=== PATIENT | female | born 1990 | race Caucasian/White ===

== ENCOUNTER 2016-10-12 06:12 | Day surgery (SDC) | payer MEDICAID ==
[2016-10-11 11:59] LABS: BASOPHILS 0.2 % (0.0-2.0); EOSINOPHILS 0.8 % (0-7); HEMATOCRIT 36.5 % (36.0-48.0); HEMOGLOBIN 11.7 g/dL (12-16); IMMATURE GRANULOCYTES 0.3 % (0-5); LYMPHOCYTES 29.8 % (15-50); MCH 27.7 pg (26.0-34.0); MCHC 32.1 g/dL (31.0-37.0); MCV 86.5 fL (80.0-100.0); MEAN PLATELET VOLUME 8.9 fL (7.4-10.4); NEUTROPHILS 61.9 % (40-80); PLATELET COUNT 235 10x3/uL (130-400); RBC 4.22 10x6/uL (4.00-5.40); RDW 13.4 % (11.5-14.5); WBC 6.6 10x3/uL (4.8-10.8)
[~2016-10-12] VITALS: Ht 167.6 cm; Wt 53.5 kg
[~2016-10-12 06:12] MED LIST: MUCUS RELIEF
[2016-10-12 08:03] VITALS: BP 111/68; Ht 167.6 cm; Wt 53.5 kg
[2016-10-12] MEDS ORDERED: VALIUM5 MG PO (08:12)
[2016-10-12 08:14] LABS: HCG URINE NEGATIVE (NEGATIVE)
--- NOTE | 2016-10-12 08:40 | HP ---
PATIENT: SOPHIA NGUYEN MEDICAL RECORD: [id number] ACCOUNT: [id number] LOCATION:[facility] : 89 ADMISSION DATE: 10/12/16 HISTORY AND PHYSICAL EXAMINATION HISTORY OF PRESENT ILLNESS: This patient is a 26-year-old 3, para 3 white female with severe menorrhagia. She is status post tubal ligation. She desires endometrial ablation. DRUG ALLERGIES: MORPHINE AND ASPIRIN. CURRENT MEDICATIONS: Valium, tramadol, promethazine, and albuterol. PREVIOUS SURGERIES: Tubal ligation in 2014. Most recent Pap smear this year is normal. REVIEW OF SYSTEMS: No chest pain and no dyspnea. Positive for severe menorrhagia. FAMILY HISTORY: Noncontributory. SOCIAL HISTORY: Previously and currently . HABITS: Recently quit smoking. No ethanol use. PHYSICAL EXAMINATION: GENERAL: Well-developed and well-nourished female in no distress. VITAL SIGNS: Her weight is 118, her blood pressure 100/60. HEENT: Grossly unremarkable. LUNGS: Clear. HEART: Regular rate and rhythm. ABDOMINAL AND PELVIC: Current and will be repeated under anesthesia. EXTREMITIES: No cyanosis, clubbing or edema. NEUROLOGIC: Grossly intact. IMPRESSION: Severe menorrhagia, status post tubal ligation, desires endometrial ablation. After discussion of all options including oral contraceptives, Depo-Provera and hysterectomy. The risk of procedure were identified individually and discussed. TRANSINT:[id number] Voice Confirmation ID: [id number] DOCUMENT ID: [id number] KULWINDER SANCHEZ MD at 0840 CC: [id number] DICTATION DATE: 10/11/16 1239 HOG FEEDER: 10/11/[address] [facility] [address] [place] [address]
--- NOTE | 2016-10-12 10:42 | NUR ---
BURN 93 SECONDS
--- NOTE | 2016-10-12 11:04 | NUR ---
OPA IN AIRWAY ON ADMIT TO RR.
--- NOTE | 2016-10-12 11:10 | NUR ---
OPA REMOVED AT 1110.
--- NOTE | 2016-10-12 11:39 | NUR ---
1139 NO VAGINAL BLEEDING NOTED.
--- NOTE | 2016-10-12 14:30 | NUR ---
UP TO BATHROOM, GAIT STEADY, VOIDED WITHOUT DIFFICULTY. IV REMOVED INTACT. DISCHARGE INSTRUCTIONS AND RX GIVEN, VOICED UNDERSTANDING. DISCHARGED HOME VIA WC.
--- NOTE | 2016-10-19 09:57 | OP ---
PATIENT NAME: SOPHIA NGUYEN MEDICAL RECORD: [id number] :89 LOCATION:[facility] ADMISSION DATE: SURGEON: MAKAYLA SANCHEZ MD DATE OF OPERATION: 10/12/2016 PREOPERATIVE DIAGNOSIS: Menorrhagia. POSTOPERATIVE DIAGNOSIS: Menorrhagia. PROCEDURE: NovaSure endometrial ablation. SURGEON: Makayla Sanchez MD ANESTHESIA: General. FINDINGS: An 8-cm uterine cavity length. ESTIMATED BLOOD LOSS: Minimal. COMPLICATIONS OF PROCEDURE: None. OPERATIVE NOTE: The patient was taken to the OR and under adequate general anesthesia, prepped and draped in the usual manner for vaginal procedures with legs in floating boot Davidson stirrups. The anterior lip of the cervix was grasped with tenaculum. The intrauterine cavity length was 8 cm. The NovaSure endometrial ablation device was inserted after gently dilating the cervix to accept. The width of the intrauterine cavity was 3.5 cm. The NovaSure burn was carried out for a full 93 seconds without difficulty or complication. At the end of the procedure, all instruments were removed. There was no bleeding. The patient went to the recovery area in good condition. TRANSINT:[id number] Voice Confirmation ID: [id number] DOCUMENT ID: [id number] MAKAYLA SANCHEZ MD at 0957 CC: [id number] DICTATION DATE: 10/12/16 1055 LEHR STRIPPER: 10/12/16 1125 [facility] 10/12/16 [place] [id number]
== END 2016-10-12 14:30 | disposition home or self-care (01) ==
LOC: D.OPS 06:12 → D.PAN 08:30 → D.OPS 08:30
PROVIDERS: Obstetrics & Gynecology
DX: N92.0 Excessive and frequent menstruation with regular cycle (principal); F17.200 Nicotine dependence, unspecified, uncomplicated; K21.9 Gastro-esophageal reflux disease without esophagitis

== ENCOUNTER 2018-11-19 07:10 | Day surgery (SDC) | payer MEDICAID ==
[2018-11-16 16:14] LABS: BASOPHILS 0.4 % (0-2); EOSINOPHILS 2.9 % (0-7); HEMATOCRIT 36.6 % (36.0-48.0); HEMOGLOBIN 11.8 g/dL (12-16); IMMATURE GRANULOCYTES 0.3 % (0-5); LYMPHOCYTES 39.4 % (15-50); MCH 27.8 pg (26.0-34.0); MCHC 32.2 g/dL (31.0-37.0); MCV 86.3 fL (80.0-100.0); MEAN PLATELET VOLUME 8.8 fL (7.4-10.4); MONOCYTES 8.7 % (2-11); NEUTROPHILS 48.3 % (40-80); PLATELET COUNT 261 10x3/uL (130-400); RBC 4.24 10x6/uL (4.00-5.40); RDW 12.9 % (11.5-14.5); WBC 7.6 10x3/uL (4.8-10.8)
[~2018-11-19] VITALS: Ht 167.6 cm; Wt 56.2 kg
[~2018-11-19 07:10] MED LIST changes: +ULTRAM50 MG PO; +VALIUM5 MG PO; +ZANTAC300 MG PO
[2018-11-19] MEDS ORDERED: ZQUIL (07:39)
[2018-11-19 07:47] VITALS: BP 107/67; Ht 167.6 cm; Wt 56.2 kg
[2018-11-19 08:02] LABS: HCG URINE NEGATIVE (NEGATIVE)
--- NOTE | 2018-11-19 14:21 | OP ---
PATIENT NAME: SOPHIA CASTRO MEDICAL RECORD: [id number] :89 LOCATION:[facility] ADMISSION DATE: SURGEON: VINCENZO HELLER MD DATE OF OPERATION: 11/19/2018 PREOPERATIVE DIAGNOSES: 1. Pelvic pain. 2. Dysfunctional bleeding. 3. History of tubal ligation. 4. History of ovarian cyst. POSTOPERATIVE DIAGNOSES: 1. Peritoneal pelvic masses. 2. Dysfunctional bleeding. 3. Ovarian cyst. PROCEDURES PERFORMED: 1. Diagnostic laparoscopy. 2. Removal of pelvic mass. 3. Right cystectomy. 4. Dilation and curettage. SURGEON: Vincenzo Heller MD PADDLE DYEING MACHINE OPERATOR: Gary Walters. ANESTHESIOLOGIST: Dr. Gunter ANESTHESIA: General anesthetic with endotracheal intubation. FINDINGS: Uterus was slightly enlarged and boggy. Both tubes were interrupted bilaterally. Right ovary with approximately 3-4 cm simple cyst. In the cul-de-sac contained within the peritoneal fluid were multiple small vesicles not attached to any pelvic or abdominal structure. At the time of curettage scant to moderate tissue returned with good cry throughout. SPECIMENS REMOVED: 1. Peritoneal masses. 2. Right ovarian capsule with cyst wall. 3. Endometrial curettings. SPECIMEN DISPOSITION: All specimens to pathology. ESTIMATED BLOOD LOSS: Less than or equal to 50 cc. FLUIDS: One liter lactated Ringer's. URINE OUTPUT: Quantity sufficient void prior to this procedure. COMPLICATIONS: None. DRAINS: None. INDICATIONS: The patient is a 28-year-old female with a history of tubal ligation and pelvic pain. The patient also has had dysfunctional bleeding. The OPERATIVE REPORT [id number] SOPHIA CASTRO patient is consented for diagnostic laparoscopy due to pelvic pain and D&C and any indicated procedures. The patient and I had a lengthy conversation in regards to bilateral salpingectomy due to the increased risk of ovarian cancer and the patient feels that the Filshie clips, which have been applied to apply in the past are the source of her discomfort and is only requesting removal of the Filshie clips without removal of the tube. DESCRIPTION OF PROCEDURE: After informed consent was assured, the patient was taken to the operating room where anesthetic was obtained. The patient was then prepped and draped in usual sterile fashion. A trocar was inserted in the infraumbilical incision site. Pneumoperitoneum was developed. The patient was placed in Trendelenburg position and accessory ports were placed in the right lower quadrant and in the midline. The bowel was swept free of the pelvis with the above findings. Using graspers, the vesicles that were contained within the posterior cul-de-sac were removed. These were sent to pathology. At this point, the right Filshie clip was elevated and using a Bovie cautery, the attachments of the Filshie clip to the peritoneum was removed on the right. This was removed from the trocar on the right hand side. This was again repeated on the left, elevating the Filshie clip and using monopolar cautery to remove its attachments to the peritoneum. After this had been completed, the ovarian cyst was addressed. Using a grasper to hold firmly the hilum, Bovie cautery was used to incise the capsule overlying the cyst. A portion of the capsule as well as cyst wall removed and sent to pathology with drainage of the cyst. Pelvis was irrigated, irrigant removed. The edges of the cystectomy were cauterized for hemostasis. The trocars were removed under direct visualization as the primary trocar releases CO2 gas. After release of the pneumoperitoneum all trocars were removed and the skin reapproximated with subcuticular stitch and Dermabond applied. The legs were positioned for the vaginal portion of this case. Weighted speculum was introduced in the vagina and the cervix visualized, grasped with a single tooth tenaculum and serially dilated to accommodate a #2 curette. This was passed gently to the fundus and with traction being applied against the uterine wall and withdrawn. Good cry was obtained throughout along with the uterine specimen. The specimen was sent to pathology. Single tooth tenaculum was removed and bleeding from the puncture site necessitates use of Bovie cautery to obtain hemostasis. Once this had been performed, the speculum was removed from the vagina. The patient was taken down from the stirrups went to the recovery room in stable condition. The sponge, lap, and needle counts correct times 2. TRANSINT:[id number] Voice Confirmation ID: [id number] DOCUMENT ID: [id number] VINCENZO HELLER MD at 1424 CC: [id number] DICTATION DATE: 11/19/18 1118 CASE MAKER: 11/19/18 1206 [facility] 11/19/18 [facility] [address] [facility] [address]
== END 2018-11-19 13:45 | disposition home or self-care (01) ==
LOC: D.OPS 07:10 → D.PAN 09:45 → D.OPS 09:45
PROVIDERS: ATTEND Obstetrics & Gynecology
DX: R19.09 Other intra-abdominal and pelvic swelling, mass and lump (principal); N93.8 Other specified abnormal uterine and vaginal bleeding; N83.11 Corpus luteum cyst of right ovary; K66.8 Other specified disorders of peritoneum; Z01.812 Encounter for preprocedural laboratory examination

== ENCOUNTER 2018-12-21 18:52 | Emergency (ER) | payer MEDICAID ==
[~2018-12-21] VITALS: Ht 167.6 cm; Wt 57.6 kg
[~2018-12-21 18:52] MED LIST changes: +ZQUIL
[2018-12-21 19:09] VITALS: BP 118/72; Ht 167.6 cm; Wt 57.6 kg
[2018-12-21 19:43] LABS: APPEARANCE CLEAR (CLEAR); BILIRUBIN NEGATIVE (NEGATIVE); COLOR STRAW (YELLOW); GLUCOSE NEGATIVE (NEGATIVE); KETONE NEGATIVE (NEGATIVE); NITRITE NEGATIVE (NEGATIVE); PROTEIN NEGATIVE (NEGATIVE); SPECIFIC GRAVITY 1.005 (1.005-1.020); UROBILINOGEN NORMAL (NORMAL)
== END 2018-12-21 23:36 | disposition home or self-care (01) ==
LOC: D.ER 18:52
PROVIDERS: Emergency Medicine
DX: R10.2 Pelvic and perineal pain (principal); R14.0 Abdominal distension (gaseous)